=== PATIENT | female | born 2000 | race Caucasian/White ===

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

== ENCOUNTER 2022-11-22 08:14 | Emergency (ER) | payer OTHER ==
--- NOTE | 2022-11-22 08:39 | ED Physician Documentation ---
PD HPI ABD PAIN - Stated complaint Stated Complaint: ABD PX - Chief complaint Chief Complaint: Abd Pain - History obtained from History obtained from: Patient - History of Present Illness Timing - onset: Last night Timing - duration: Hours (12) Timing - details: Gradual onset, Still present Quality: Cramping, Aching, Pain Location: Periumbilical, RLQ Radiation: No: Right flank Improved by: Laying still Worsened by: Moving, Position, Palpation, Other (walking and laughing). No: Breathing Associated symptoms: No: Fever, Nausea, Vomiting, Diarrhea, Dysuria, Loss of appetite Similar symptoms before: Diagnosis (somewhat similar to ovarian cyst when 13 years old. Get LLQ pains with menses regularly.) Recently seen: Not recently seen Review of Systems Constitutional: denies: Fever, Chills Nose: denies: Rhinorrhea / runny nose, Congestion Throat: denies: Sore throat Respiratory: denies: Cough GI: reports: Abdominal Pain. denies: Nausea, Vomiting, Diarrhea : reports: Control (OCP and condoms). denies: Dysuria, Discharge Skin: denies: Rash PD PAST MEDICAL HISTORY - Past Medical History Cardiovascular: Murmur - Past Surgical History Past Surgical History: Yes - Present Medications Home Medications: Ambulatory Orders Medication Instructions Recorded Confirmed Docusate Sodium 100Mg Capsule 100 mg PO DAILY #15 cap 11/22/22 [Colace 100Mg Capsule] Ibuprofen [Motrin] 600 mg PO TID PRN #25 tab 11/22/22 norethindrone-e.estradioL-iron 1 each PO DAILY 11/22/22 11/22/22 [Luiza Fe 1.5-30 Tablet] - Allergies Allergies/Adverse Reactions: Allergies Allergy/AdvReac Type Severity Reaction Status Date / Time No Known Drug Allergies Allergy Verified 11/26/14 10:37 - Social History Does the pt smoke?: No Smoking Status: Never smoker Does the pt drink ETOH?: No Does the pt have substance abuse?: No - Immunizations Immunizations are current?: Yes PD ED PE NORMAL - Vitals Vital signs reviewed: Yes - General General: Alert and oriented X 3, No acute distress, Well developed/nourished - Cardiac Cardiac: RRR - Respiratory Respiratory: Clear bilaterally - Abdomen Abdomen: Normal bowel sounds, Soft, Non distended, No organomegaly, Other (tender RLQ with local guarding and percussion tenderness, mild local rebound. No tenderness rest of abd and no referred tenderness nor rebound. ) - Female Female : Deferred - Rectal Rectal: Deferred - Back Back: No CVA TTP - Derm Derm: Normal color, Warm and dry Results - Vitals Vitals: Oxygen O2 Source Room air - Labs Labs: Laboratory Tests 11/22/22 11/22/22 11/22/22 08:36 08:36 09:48 WBC 8.5 RBC 4.60 Hgb 14.4 Hct 41.5 MCV 90.2 MCH 31.3 H MCHC 34.7 RDW 13.1 Plt Count 340 MPV 9.0 Neut # (Auto) 5.0 Lymph # (Auto) 3.1 [place] # (Auto) 0.3 Eos # (Auto) 0.1 Baso # (Auto) 0.0 Absolute Nucleated RBC 0.00 Nucleated RBC % 0.0 Sodium 138 Potassium 4.0 Chloride 104 Carbon Dioxide 26 Anion Gap 8.0 BUN 11 Creatinine 0.8 Estimated GFR (MDRD) 88 L Glucose 91 Calcium 9.9 Total Bilirubin 0.4 AST 14 ALT 24 Alkaline Phosphatase 60 Total Protein 8.0 Albumin 4.9 Globulin 3.1 Albumin/Globulin Ratio 1.6 Lipase 13 Urine Color YELLOW Urine Clarity HAZY Urine pH 7.0 Ur Specific [place] 1.020 Urine Protein NEGATIVE Urine Glucose (UA) NEGATIVE Urine Ketones NEGATIVE Urine Occult Blood TRACE-INTA Urine Nitrite NEGATIVE Urine Bilirubin NEGATIVE Urine Urobilinogen 0.2 (NORMAL) Ur Leukocyte Esterase TRACE H Urine RBC 6-10 H Urine WBC 6-10 H Ur Squamous Epith Cells MOD Squamous H Urine Bacteria Few Urine Mucus Few Strands Ur Microscopic Review INDICATED Urine Culture Comments NOT INDICATED Urine HCG, Qual NEGATIVE - Rads (name of study) pelvic US Relevant Findings:: Prelim report reviewed, Other (US tech, results 4 cm ovarian cyst on left. No abnormal on right. ) abd/pelvic CT Relevant Findings:: Prelim report reviewed (no acute abd process. Normal appendix. ), EMP independent interpretation of test PD Medical Decision Making - ED course Complexity details: reviewed results, re-evaluated patient (improved with dilaudid 0.5 mg and IV meds here in ER. ), considered differential, d/w patient Reviewed Lab Results: has normal UA and WBC. Pain right lower with tenderness there. US showing left ovarian cyst which does not fit the symptoms. Appendix not seen on US. Can get CT to eval for appendix and other GI causes. This was done. Normal appendix on CT and no other acute provcess. Consider ovarian inflammation as cause of the pain though can't tell for sure. Normal ovarian blood flow. Can treat with NSAIDs and pain meds. Departure - Departure Disposition: 01 Home, Self Care Clinical Impression: Right lower quadrant abdominal pain, Ovarian cyst Condition: Stable Record reviewed to determine appropriate education?: Yes Instructions: ED Abdominal Pain Female Non-Specific Abdominal Pain Follow-Up: Jyoti Montes ARNP [Primary Care Provider] - Prescriptions: Docusate Sodium 100Mg Capsule [Colace 100Mg Capsule] 100 mg PO DAILY #15 cap Ibuprofen [Motrin] 600 mg PO TID PRN #25 tab PRN Reason: Pain Comments: Your ultrasound showed a ovarian cyst on the left which measures 4 cm. This is not in the area of your pain and there is no signs of it leaking or inflammation per se. I do not think this is the cause of your pain on the right. You may be having ovarian pain on the right related to inflammation. Your CT scan showed a normal appendix and no other acute abnormality to account for the pain in that area. At this point it is reasonable to treat with anti-inflammatories regularly for the next several days to a week and add Tylenol every 4-6 hours if needed for pain. A mild stool softener is reasonable as well. Recheck if not improved over the next several days and resolved by 3 to 5 days. The cyst on the left can potentially be rechecked in the month or so if you have any symptoms related to that area. Otherwise they commonly will resolve on their own. Follow-up with the women's health clinic if needed or your primary care. Forms: PCP List Discharge Date/Time: 11/22/22 12:55
[2022-11-22] MEDS ORDERED: SODIUM CHLORIDE 0.9% 1,000 ML IV STA (08:52)
[2022-11-22] MEDS ORDERED: HYDROmorphone 0.5 MG/0.5 ML SYRINGE IVP STA (08:53)
[2022-11-22 09:03] LABS: BASOPHILS % (AUTO) 0.4 %; EOSINOPHILS # (AUTO) 0.1 10^3/uL (0.0-0.7); EOSINOPHILS % (AUTO) 0.6 %; HCT - HEMATOCRIT 41.5 % (37.0-47.0); HGB - HEMOGLOBIN 14.4 g/dL (12.0-16.0); LYMPHOCYTES # (AUTO) 3.1 10^3/uL (1.5-3.5); MEAN CORPUSCULAR HEMOGLOBIN 31.3 pg (27.0-31.0); MEAN CORPUSCULAR HGB CONC 34.7 g/dL (32.0-36.0); MEAN CORPUSCULAR VOLUME 90.2 fL (81.0-99.0); MONOCYTES # (AUTO) 0.3 10^3/uL (0.0-1.0); MONOCYTES % (AUTO) 3.4 %; NEUTROPHILS % (AUTO) 59.2 %; PLT - PLATELET COUNT 340 10^3/uL (130-450); RED CELL DISTRIBUTION WIDTH 13.1 % (12.0-15.0); WHITE BLOOD COUNT 8.5 x10^3/uL (4.8-10.8)
[2022-11-22 09:31] LABS: ALBUMIN 4.9 g/dL (3.2-5.5); ALBUMIN/GLOBULIN RATIO 1.6 (1.0-2.2); BILIRUBIN,TOTAL 0.4 mg/dL (0.2-1.0); CALCIUM 9.9 mg/dL (8.5-10.3); CREATININE 0.8 mg/dL (0.6-1.3)
[2022-11-22 09:54] LABS: BILIRUBIN,URINE NEGATIVE (NEGATIVE); GLUCOSE, URINE (UA) NEGATIVE (NEGATIVE); KETONES,URINE (UA) NEGATIVE (NEGATIVE); LEUKOCYTE ESTERASE, URINE TRACE (NEGATIVE); NITRITE,URINE NEGATIVE (NEGATIVE); OCCULT BLOOD,URINE TRACE-INTA (NEGATIVE); PROTEIN,URINE NEGATIVE (NEGATIVE); UROBILINOGEN,URINE 0.2 (NORMAL) E.U./dL (NORMAL)
[2022-11-22 09:55] LABS: CLARITY,URINE HAZY (CLEAR)
[2022-11-22 09:56] LABS: HCG UR QUAL NEGATIVE
[2022-11-22 10:02] LABS: BACTERIA,URINE Few /HPF (None Seen); SQUAMOUS EPITHELIAL CELL,UR MOD Squamous (<= Few)
[2022-11-22 10:03] LABS: MUCUS,URINE Few Strands
--- NOTE | 2022-11-22 10:24 | Ultrasound Report ---
PROCEDURE: Abdomen Limited INDICATIONS: RLQ pain since last night, eval appendix TECHNIQUE: Real-time focused scanning was performed of the abdomen, with image documentation. COMPARISONS: None. FINDINGS: The appendix is not visualized. Limited evaluation of the right lower quadrant secondary to overlying bowel gas. IMPRESSION: Appendix not visualized Reviewed by: Edis Flor MD on 11/22/2022 10:23 AM PDT Approved by: Edis Flor MD on 11/22/2022 10:23 AM PDT Station ID: [id number]
--- NOTE | 2022-11-22 10:28 | Ultrasound Report ---
PROCEDURE: Pelvic w/Transvag+Doppler Comp INDICATIONS: RLQ pain, R since last evening TECHNIQUE: Real-time scanning was performed of the pelvic organs, with image documentation. Additional endovagi nal scanning was necessary due to incomplete visualization of the adnexal and endometrial structures by transabdominal scanning. Doppler interrogation was performed of the ovaries bilaterally. COMPARISON: None. FINDINGS: Uterus: Uterus is anteverted and normal in size at 6.5 x 3.8 x 4.2 cm. The myometrium is homogeneou s. The endometrium measures 5.1 mm in combined thickness. No uterine fibroids. Ovaries: The right ovary measures 3.1 x 1.6 x 1.4 cm, with a calculated ovarian volume of 3.6 cc. T he left ovary measures 4.7 x 3.3 x 3.8 cm, with a calculated ovarian volume of 31 cc. There is a left ovarian simple cyst measuring 4.3 x 2.9 x 3.2 cm. Appropriate blood flow to the ovaries with Dopple r interrogation. Less than 12 follicles can be seen in each ovary. No adnexal masses are seen. Other: No pathologic free abdominal or pelvic fluid. IMPRESSION: Left ovarian simple cyst measuring 4.3 cm. The ovaries are otherwise normal in appearance with approp riate arterial and venous flow. Reviewed by: Edis Flor MD on 11/22/2022 10:27 AM PDT Approved by: Edis Flor MD on 11/22/2022 10:27 AM PDT Station ID: [id number]
--- NOTE | 2022-11-22 11:53 | CT Report ---
PROCEDURE: ABDOMEN/PELVIS W INDICATIONS: RLQ pain since yest CONTRAST: 100ml omni 300 TECHNIQUE: After the administration of intravenous contrast, 5 mm thick sections acquired from the diaphragms to the symphysis. 5 mm thick coronal and sagittal reformats were acquired. For radiation dose reducti on, the following was used: automated exposure control, adjustment of mA and/or kV according to santa ent size. COMPARISON: Pelvic ultrasound same day FINDINGS: Visualized lung bases: No pleural effusion. Liver and biliary tree: Small hypodensity in segment 7 is too small to characterize, could potentiall y represent a cyst or hemangioma but is nonspecific. No biliary ductal dilation demonstrated. Gallbladder: No radiopaque cholelithiasis. Spleen: Unremarkable. Pancreas: Unremarkable. Adrenal glands: Unremarkable. Kidneys and ureters: No hydronephrosis. Gastrointestinal tract: No bowel obstruction. The appendix is visualized without evidence of acute ap pendicitis. Peritoneal cavity: No free air or substantial free fluid. Bladder: Unremarkable. Pelvic organs: Better evaluated on same-day pelvic ultrasound. Vasculature: No abdominal aortic aneurysm. Lymph nodes: No highly suspicious lymph nodes visualized. Musculoskeletal: No acute osseous abnormality. IMPRESSION: No evidence of acute appendicitis. Reviewed by: Demetrio Diaz MD on 11/22/2022 11:52 AM PDT Approved by: Demetrio Diaz MD on 11/22/2022 11:52 AM PDT Station ID: [id number]
[2022-11-22 12:12] VITALS: BP 109/83; O2SAT 100
[2022-11-22] MEDS ORDERED: iohexoL-300 100 ML VIAL IVP ONE (16:26)
== END 2022-11-22 12:55 | disposition home or self-care (01) ==
LOC: ED 08:14
DX: R10.31 Right lower quadrant pain (principal); N83.202 Unspecified ovarian cyst, left side
CPT/HCPCS: 36415; 74177; 76705; 76830; 76856; 80053; 81001; 81025; 83690; 85025; 93975; 96374; 99284; 99285; J1170; Q9967; 81003; 87086

== ENCOUNTER 2023-03-07 14:07 | Outpatient (CLI) | payer OTHER ==
--- NOTE | 2023-03-07 14:51 | DEXA Report ---
PROCEDURE: Dexa Spine and/or Hip INDICATIONS: OSTEOPENIA TECHNIQUE: Dual energy x-ray absorptiometry (DXA) was performed on a [employer] System. Regions measur ed are the AP Spine, femoral neck, and if needed forearm. COMPARISON: None FINDINGS: Lumbar Spine: Bone Mineral Density 1.088 g/cm/cm,T score -0.8. Left Femoral Neck: Bone Mineral Density 0.995 g/cm/cm, T score -0.3. Left Hip: Bone Mineral Density 1.004 g/cm/cm,T score 0.0. (T score greater or equal to -1.0: NORMAL) (T score from -1.1 to -2.4: OSTEOPENIA) (T score less than or equal to -2.5 to: OSTEOPOROSIS) Impression: By WHO criteria, this patient has normal bone density. Patients with diagnosis of osteoporosis or osteopenia should have regular bone mineral density assess ment. For those eligible for Medicare, routine testing is allowed once every 2 years. Testing frequ ency can be increased for patients who have rapidly progressing disease or for those who are receivin g medical therapy to restore bone mass. Reviewed by: Walter Lawton MD on 03/07/2023 2:50 PM PST Approved by: Walter Lawton MD on 03/07/2023 2:50 PM PST Station ID: [id number]
== END 2023-03-07 14:08 | disposition home or self-care (01) ==
LOC: DI 14:07
PROVIDERS: ATTEND Registered Nurse
DX: M85.80 Other specified disorders of bone density and structure, unspecified site (principal)

== ENCOUNTER 2023-04-09 12:10 | Outpatient (CLI) | payer OTHER | END 2023-04-09 12:11 | disposition home or self-care (01) | LOC: DI 12:10 | PROVIDERS: ATTEND Registered Nurse | DX: Q23.1 Congenital insufficiency of aortic valve (principal) | CPT/HCPCS: 93307 ==

== ENCOUNTER 2023-04-10 13:38 | Outpatient (CLI) | payer OTHER ==
--- NOTE | 2023-04-10 15:52 | Ultrasound Report ---
PROCEDURE: Abdomen Complete INDICATIONS: RUQ ABD PAIN TECHNIQUE: Real-time scanning was performed of the abdominal and retroperitoneal organs, with image documentatio n. COMPARISON: None. FINDINGS: Liver: Liver is normal in size and homogeneous in echotexture. Gallbladder: Unremarkable. Biliary ducts: Intrahepatic bile ducts are non-dilated. Extrahepatic bile duct caliber measures 69 mm. Normal is 6-7 mm or less in diameter, or 10 mm or less post-cholecystectomy. Pancreas: Visualized portions of the pancreas are sonographically normal. Spleen: Spleen is normal in size and homogeneous in echotexture. Kidneys: Kidneys are normal in size and echotexture. Right kidney measures 10.1 cm long; left kidne y measures 10.7 cm long. No hydronephrosis or nephrolithiasis. No solid masses. No complex renal cy stic lesions which require follow-up. Aorta: Visualized aorta is normal in caliber at less than 3 cm. Iliacs: Proximal common iliac arteries are normal in caliber at less than 2.5 cm. IVC: Intrahepatic inferior vena cava is patent. Miscellaneous: No free abdominal fluid. IMPRESSION: Mild extrahepatic biliary dilation, measuring up to 9 mm. No gallstones or choledocholithiasis identi fied. Correlate with bilirubin and consider MRCP or ERCP there is evidence of biliary obstruction. Reviewed by: Otis Marte MD on 04/10/2023 3:51 PM PST Approved by: Otis Marte MD on 04/10/2023 3:51 PM PST Station ID: [id number]
== END 2023-04-10 13:39 | disposition home or self-care (01) ==
LOC: DI 13:38
PROVIDERS: ATTEND Registered Nurse
DX: R10.11 Right upper quadrant pain (principal)

== ENCOUNTER 2023-07-17 23:21 | Emergency (ER) | payer OTHER ==
--- NOTE | 2023-07-17 23:49 | ED Physician Documentation ---
History of Present Illness - Stated complaint Stated Complaint: ABD PX - Chief complaint Chief Complaint: Abd Pain - History obtained from History obtained from: Patient, Family (mom) - Additonal information Additional information: 23yF with pmh gerd, frequent issues with upper abdominal pain with normal gallbladder ultrasound in april 2023, scheduled for HIDA scan in two days p/w RUQ pain starting about 2 hours after eating dinner, colicky, radiating to epigastrium and LUQ. denies n/v/d urinary sx back pain or fever. 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 : None HEENT: None Psych: None Musculoskeletal: None Derm: None - Past Surgical History Past Surgical History: Yes - Present Medications Home Medications: Ambulatory Orders Medication Instructions Recorded Confirmed Docusate Sodium 100Mg Capsule 100 mg PO DAILY #15 cap 11/22/22 [Colace 100Mg Capsule] Ibuprofen [Motrin] 600 mg PO TID PRN #25 tab 11/22/22 norethindrone-e.estradioL-iron 1 each PO DAILY 11/22/22 11/22/22 [Luiza Fe 1.5-30 Tablet] - Allergies Allergies/Adverse Reactions: Allergies Allergy/AdvReac Type Severity Reaction Status Date / Time prednisone Allergy Anxiety Verified 07/17/23 23:25 - Social History Does the pt smoke?: No Smoking Status: Never smoker Does the pt drink ETOH?: No Does the pt have substance abuse?: No - Immunizations Immunizations are current?: Yes - POLST Patient has POLST: No PD ED PE NORMAL - Vitals Vital signs reviewed: Yes - General General: Alert and oriented X 3, No acute distress, Well developed/nourished - HEENT HEENT: Atraumatic, PERRL, EOMI - Neck Neck: Supple, no meningeal sign - Cardiac Cardiac: RRR - Respiratory Respiratory: No respiratory distress, Clear bilaterally - Abdomen Abdomen: Non tender, Non distended, Other (POCUS shows nondistended gallbladder with normal GB wall thickness, normal CBD diameter, no gallstones or sludge.) - Back Back: No CVA TTP - Derm Derm: Normal color, Warm and dry Results - Vitals Vitals: Vital Signs - 24 hr 07/17/23 23:25 Temperature 36.8 C Heart Rate 100 Respiratory 16 Rate Blood Pressure 122/82 H O2 Saturation 100 Oxygen O2 Source Room air - Labs Labs: Laboratory Tests 07/17/23 07/17/23 07/17/23 23:45 23:45 23:47 WBC 14.4 H RBC 4.27 Hgb 13.3 Hct 38.8 MCV 90.9 MCH 31.1 H MCHC 34.3 RDW 12.8 Plt Count 335 MPV 8.9 Neut # (Auto) 8.4 H Lymph # (Auto) 5.2 H [place] # (Auto) 0.6 Eos # (Auto) 0.1 Baso # (Auto) 0.1 Absolute Nucleated RBC 0.00 Band Neuts % (Manual) Not Reportable Abnorm Lymph % (Manual) Not Reportable Nucleated RBC % 0.0 Neutrophils # (Manual) Not Reportable Lymphocytes # (Manual) Not Reportable Monocytes # (Manual) Not Reportable Eosinophils # (Manual) Not Reportable Basophils # (Manual) Not Reportable Differential Comment MANUAL=AUTO DIFF WBC Morphology 1+ HYPERSEG NEUT Platelet Estimate NORMAL (130-450,000) Platelet Morphology NORMAL APPEARANCE RBC Morph Micro Appear NORMAL APPEARANCE Sodium Potassium Chloride Carbon Dioxide Anion Gap BUN Creatinine Estimated GFR (MDRD) Glucose Calcium Total Bilirubin AST ALT Alkaline Phosphatase Total Protein Albumin Globulin Albumin/Globulin Ratio Urine Color YELLOW Urine Clarity HAZY Urine pH 7.0 Ur Specific [place] 1.020 Urine Protein NEGATIVE Urine Glucose (UA) NEGATIVE Urine Ketones NEGATIVE Urine Occult Blood SMALL H Urine Nitrite NEGATIVE Urine Bilirubin NEGATIVE Urine Urobilinogen 0.2 (NORMAL) Ur Leukocyte Esterase SMALL H Urine RBC 0-5 Urine WBC 6-10 H Ur Squamous Epith Cells MOD Squamous H Urine Bacteria Moderate H Ur Microscopic Review Cancelled Urine Culture Comments NOT INDICATED Urine HCG, Qual NEGATIVE 07/17/23 23:47 WBC RBC Hgb Hct MCV MCH MCHC RDW Plt Count MPV Neut # (Auto) Lymph # (Auto) [place] # (Auto) Eos # (Auto) Baso # (Auto) Absolute Nucleated RBC Band Neuts % (Manual) Abnorm Lymph % (Manual) Nucleated RBC % Neutrophils # (Manual) Lymphocytes # (Manual) Monocytes # (Manual) Eosinophils # (Manual) Basophils # (Manual) Differential Comment WBC Morphology Platelet Estimate Platelet Morphology RBC Morph Micro Appear Sodium 135 Potassium 3.8 Chloride 104 Carbon Dioxide 25 Anion Gap 6.0 BUN 12 Creatinine 0.9 Estimated GFR (MDRD) 76 L Glucose 110 H Calcium 9.4 Total Bilirubin 0.2 AST 10 ALT 9 L Alkaline Phosphatase 41 L Total Protein 6.5 Albumin 4.3 Globulin 2.2 Albumin/Globulin Ratio 2.0 Urine Color Urine Clarity Urine pH Ur Specific [place] Urine Protein Urine Glucose (UA) Urine Ketones Urine Occult Blood Urine Nitrite Urine Bilirubin Urine Urobilinogen Ur Leukocyte Esterase Urine RBC Urine WBC Ur Squamous Epith Cells Urine Bacteria Ur Microscopic Review Urine Culture Comments Urine HCG, Qual PD Medical Decision Making - ED course ED course: 23yF p/w RUQ / epigastric pain starting around 9pm tonight, now improved in the ED. Negative gallbladder ultrasound study in april and POCUS today shows no gallstones. patient feeling better and declining symptomatic care. abdominal labs benign aside from mild leukocytosis with wbc 14.4, which is very nonspecific. plan to f/u for HIDA scan friday. return precautions given. Departure - Departure Disposition: Home, Self Care Clinical Impression: Abdominal pain Condition: Stable Instructions: Abdominal Pain Comments: You were seen in the emergency department for abdominal pain. Your labwork was normal and bedside ultrasound of the gallbladder did not show obvious signs of stones or blockage. Please follow-up with GI and return to the emergency department if you have any new or worsening symptoms or other concerns. Forms: PCP List
[2023-07-17 23:50] LABS: BASOPHILS # (AUTO) 0.1 10^3/uL (0.0-0.1); BASOPHILS % (AUTO) 0.4 %; EOSINOPHILS # (AUTO) 0.1 10^3/uL (0.0-0.7); EOSINOPHILS % (AUTO) 0.8 %; HCT - HEMATOCRIT 38.8 % (37.0-47.0); HGB - HEMOGLOBIN 13.3 g/dL (12.0-16.0); LYMPHOCYTES # (AUTO) 5.2 10^3/uL (1.5-3.5); LYMPHOCYTES % (AUTO) 36.3 %; MEAN CORPUSCULAR HEMOGLOBIN 31.1 pg (27.0-31.0); MEAN CORPUSCULAR HGB CONC 34.3 g/dL (32.0-36.0); MEAN CORPUSCULAR VOLUME 90.9 fL (81.0-99.0); MEAN PLATELET VOLUME 8.9 fL (7.9-10.8); MONOCYTES # (AUTO) 0.6 10^3/uL (0.0-1.0); MONOCYTES % (AUTO) 3.8 %; NEUTROPHILS # (AUTO) 8.4 10^3/uL (1.5-6.6); NEUTROPHILS % (AUTO) 58.4 %; PLT - PLATELET COUNT 335 10^3/uL (130-450); RED BLOOD COUNT 4.27 10^6/uL (4.20-5.40); RED CELL DISTRIBUTION WIDTH 12.8 % (12.0-15.0); WHITE BLOOD COUNT 14.4 x10^3/uL (4.8-10.8)
[2023-07-17 23:57] LABS: BILIRUBIN,URINE NEGATIVE (NEGATIVE); GLUCOSE, URINE (UA) NEGATIVE (NEGATIVE); KETONES,URINE (UA) NEGATIVE (NEGATIVE); LEUKOCYTE ESTERASE, URINE SMALL (NEGATIVE); NITRITE,URINE NEGATIVE (NEGATIVE); OCCULT BLOOD,URINE SMALL (NEGATIVE); PROTEIN,URINE NEGATIVE (NEGATIVE); UROBILINOGEN,URINE 0.2 (NORMAL) E.U./dL (NORMAL)
[2023-07-17 23:59] LABS: HCG UR QUAL NEGATIVE
[2023-07-18 00:05] LABS: BACTERIA,URINE Moderate /HPF (None Seen); CLARITY,URINE HAZY (CLEAR); RBC,URINE 0-5 /HPF (0-5); SQUAMOUS EPITHELIAL CELL,UR MOD Squamous (<= Few)
[2023-07-18 00:06] LABS: ALBUMIN 4.3 g/dL (3.2-5.5); ALKALINE PHOSPHATASE 41 IU/L (42-121); ALT ALANINE AMINOTRANSFERASE 9 IU/L (10-60); AST ASPARTATE AMINOTRANSFERASE 10 IU/L (10-42); BILIRUBIN,TOTAL 0.2 mg/dL (0.2-1.0); BUN - BLOOD UREA NITROGEN 12 mg/dL (6-20); CALCIUM 9.4 mg/dL (8.5-10.3); CARBON DIOXIDE - CO2 25 mmol/L (21-32); CHLORIDE 104 mmol/L (101-111); CREATININE 0.9 mg/dL (0.6-1.3); GFR - MDRD 76 (>89); GLUCOSE 110 mg/dL (74-104); POTASSIUM 3.8 mmol/L (3.5-4.5); SODIUM 135 mmol/L (135-145); TOTAL PROTEIN 6.5 g/dL (6.4-8.9)
[2023-07-18 00:10] LABS: DIFFERENTIAL COMMENT MANUAL=AUTO DIFF; PLATELET ESTIMATE, MANUAL NORMAL (130-450,000) (NORMAL); PLATELET MORPHOLOGY NORMAL APPEARANCE (NORMAL); RBC MORPHOLOGY (MULTIPLE) NORMAL APPEARANCE (NORMAL); WBC MORPHOLOGY (MULTIPLE) 1+ HYPERSEG NEUT (NORMAL)
[2023-07-18 00:21] VITALS: BP 108/71; O2SAT 95
[2023-07-18 00:33] LABS: LIPASE < 10 U/L (11-82)
== END 2023-07-18 00:20 | disposition home or self-care (01) ==
LOC: ED 23:21
DX: R10.11 Right upper quadrant pain (principal); R10.12 Left upper quadrant pain; R10.13 Epigastric pain; Z79.3 Long term (current) use of hormonal contraceptives
CPT/HCPCS: 36415; 80053; 81001; 81003; 81025; 83690; 85025; 87086; 99283